=== PATIENT | male | born 1975 | race Hispanic/Latino ===

== ENCOUNTER → 2019-07-12 | Outpatient (CLI) | payer BC, MEDICARE | END | disposition home or self-care (01) | LOC: SHCH 14:40 | PROVIDERS: ATTEND Internal Medicine Cardiovascular Disease | DX: I65.23 Occlusion and stenosis of bilateral carotid arteries (principal); I20.1 Angina pectoris with documented spasm | CPT/HCPCS: 93880 ==

== ENCOUNTER → 2020-06-01 | Outpatient (CLI) | payer MEDICARE ==
[~2020-06-01] VITALS: Ht 168.9 cm; Wt 99.2 kg
[~2020-06-01] MED LIST: AEC81 PO; ATOR-2 PO; CALC667T8 PO; CARV6.25 PO; CEFAZOLIN SODIUM 1 GM VIAL IVP SCH; CLON0.2T PO; CLOP75TA32 PO; ERY500 PO; EVOL140S2 SQ; EZET10TA48 PO; FOLI0.8T22 PO; INSREG SQ; INSU100V37 SQ; ISOS20TA7 PO; LINA290C PO; METO5TAB2 PO; OMEP40CA13 PO; ONDA4TAB4 PO; SACU1TAB PO
[2020-06-01 10:40] LABS: BASOPHILS % (AUTO) 0.4 % (0.0-5.0); HEMATOCRIT 35.2 % (42-54); LYMPHOCYTES % (AUTO) 11.2 % (21.0-51.0); MEAN CORPUSCULAR HGB CONC 34.1 g/dL (32.0-36.0); MEAN CORPUSCULAR VOLUME 99.7 fL (79-99); MONOCYTES % (AUTO) 5.7 % (3.0-13.0); NEUTROPHILS % (AUTO) 82.4 % (40.0-77.0); PLATELET COUNT (AUTO) 188 K/uL (130-400); RED BLOOD CELL COUNT(AUTO) 3.53 MIL/uL (4.50-6.20); WHITE BLOOD COUNT (AUTO) 9.9 K/uL (4.8-10.8)
[2020-06-01 10:49] LABS: POTASSIUM 4.3 mmol/L (3.5-5.1)
[2020-06-01 10:59] LABS: CREATININE 9.5 mg/dL (0.5-1.5)
--- NOTE | 2020-06-01 16:12 | NUR ---
ENDY ESQUEDA NOTIFIED OF ABNORMAL LABS- NO NEW ORDERS RECEIVED
--- NOTE | 2020-06-02 16:19 | NUR ---
Rep Spoke to Silvio from [employer] and make him aware of procedure for Friday06/06/2020
[2020-06-02 16:22] VITALS: BP 140/80
== END ==
LOC: EDSTATUS 09:00 → DAH 10:00
PROVIDERS: ATTEND Internal Medicine Cardiovascular Disease
DX: Z01.818 Encounter for other preprocedural examination (principal); I50.22 Chronic systolic (congestive) heart failure
CPT/HCPCS: 36415; 80048; 85025; 93005

== ENCOUNTER → 2020-12-11 | Outpatient (CLI) | payer MEDICARE ==
[~2020-12-11] MED LIST changes: -CEFAZOLIN SODIUM 1 GM VIAL IVP SCH; -ISOS20TA7 PO; +ISOS20TA85 PO
== END | disposition home or self-care (01) ==
LOC: SHCH 14:23
PROVIDERS: ATTEND Internal Medicine Cardiovascular Disease
DX: I25.5 Ischemic cardiomyopathy (principal)
CPT/HCPCS: 93306; 93356

== ENCOUNTER 2021-09-04 15:29 | Inpatient (IN) | payer MEDICARE ==
[~2021-09-04] VITALS: Ht 165.1 cm; Wt 99.9 kg
[~2021-09-04 15:29] MED LIST changes: -OMEP40CA13 PO; +OMEP40CA21 PO
[2021-09-04 16:52] LABS: BASOPHILS % (AUTO) 0.4 % (0.0-5.0); EOSINOPHILS % (AUTO) 0.1 % (0.0-8.0); HEMATOCRIT 36.5 % (42-54); LYMPHOCYTES % (AUTO) 9.1 % (21.0-51.0); MEAN CORPUSCULAR HEMOGLOBIN 32.3 pg (27.0-33.0); MEAN CORPUSCULAR HGB CONC 32.1 g/dL (32.0-36.0); MEAN CORPUSCULAR VOLUME 100.8 fL (79-99); MONOCYTES % (AUTO) 5.4 % (3.0-13.0); NEUTROPHILS % (AUTO) 84.7 % (40.0-77.0); PLATELET COUNT (AUTO) 132 K/uL (130-400); RED BLOOD CELL COUNT(AUTO) 3.62 MIL/uL (4.50-6.20); RED CELL DISTRIBUTION WIDTH 13.2 % (11.0-15.5); WHITE BLOOD COUNT (AUTO) 9.3 K/uL (4.8-10.8)
[2021-09-04 17:15] LABS: ALBUMIN 3.7 g/dL (3.5-5.0); BILIRUBIN,TOTAL 0.5 mg/dL (0.2-1.0); POTASSIUM 5.5 mmol/L (3.5-5.1); TOTAL PROTEIN, SERUM 7.4 g/dL (6.0-8.3)
[2021-09-04 17:20] LABS: CREATININE 10.3 mg/dL (0.5-1.5)
[2021-09-04] MEDS ORDERED: ONDANSETRON 4MG INJ IVP ONE (18:30)
[2021-09-04 19:07] LABS: PROTHROMBIN TIME 10.9 SEC (9.6-11.6)
[2021-09-04 19:09] LABS: PARTIAL THROMBOPLASTIN TIME 29.4 SEC (26.3-35.5)
[2021-09-04] MEDS ORDERED: MORPHINE 4 MG SYG ONE (19:43)
[2021-09-04] MEDS ORDERED: ONDANSETRON 4MG INJ ONE (19:43)
[2021-09-04] MEDS ORDERED: MORPHINE 4 MG SYG IM ONE (20:00)
[2021-09-04] MEDS: INSULIN HUMULIN R 100 UNIT/ML 3ML SQ SCH (21:00)
[2021-09-04] MEDS ORDERED: FAMOTIDINE 20MG VIAL IV SCH (21:00)
[2021-09-04] MEDS ORDERED: ACETAMINOPHEN 325 MG TAB PO PRN (21:00)
[2021-09-04] MEDS ORDERED: HYDROMORPHONE 1 MG INJ ONE (23:57)
[2021-09-05] VITALS (15 sets, daily range): BP systolic 101–143; BP diastolic 51–80
[2021-09-05] MEDS: HYDROMORPHONE 0.5 MG SYG (0.5MG/0.5ML) IVP PRN ×3 (00:01→10:56)
[2021-09-05] MEDS: ONDANSETRON 4MG INJ IVP PRN ×2 (05:33→15:13)
[2021-09-05 05:48] LABS: BASOPHILS % (AUTO) 0.7 % (0.0-5.0); EOSINOPHILS % (AUTO) 0.2 % (0.0-8.0); HEMATOCRIT 33.2 % (42-54); LYMPHOCYTES % (AUTO) 12.3 % (21.0-51.0); MEAN CORPUSCULAR HEMOGLOBIN 32.5 pg (27.0-33.0); MEAN CORPUSCULAR HGB CONC 31.9 g/dL (32.0-36.0); MEAN CORPUSCULAR VOLUME 101.8 fL (79-99); MONOCYTES % (AUTO) 7.9 % (3.0-13.0); NEUTROPHILS % (AUTO) 78.6 % (40.0-77.0); PLATELET COUNT (AUTO) 132 K/uL (130-400); RED BLOOD CELL COUNT(AUTO) 3.26 MIL/uL (4.50-6.20); RED CELL DISTRIBUTION WIDTH 13.4 % (11.0-15.5); WHITE BLOOD COUNT (AUTO) 8.6 K/uL (4.8-10.8)
[2021-09-05 06:06] LABS: POTASSIUM 5.8 mmol/L (3.5-5.1)
[2021-09-05 06:15] LABS: INR 0.98 (0.85-1.15); PROTHROMBIN TIME 10.7 SEC (9.6-11.6)
[2021-09-05 06:16] LABS: PARTIAL THROMBOPLASTIN TIME 29.3 SEC (26.3-35.5)
[2021-09-05 06:25] LABS: CREATININE 11.1 mg/dL (0.5-1.5)
[2021-09-05] MEDS: INSULIN HUMULIN R 100 UNIT/ML 3ML SQ SCH ×4 (07:30→21:00)
[2021-09-05] MEDS ORDERED: HYDROMORPHONE 1 MG INJ ONE ×2 (07:53→23:11)
[2021-09-05] MEDS: PANTOPRAZOLE 40 MG/VIAL IVP SCH (08:08)
[2021-09-05] MEDS ORDERED: DEXTROSE 50%-WATER 50 ML DISP.SYRIN IV ONE ×2 (09:44→12:40)
[2021-09-05] MEDS ORDERED: LIDOCAINE HCL 1% 20 ML VIAL ONE (13:20)
[2021-09-05] MEDS ORDERED: HEPARIN 1,000 UNIT VIAL ONE (13:20)
[2021-09-05] MEDS ORDERED: FENTANYL CITRATE PF 50 MCG/1 ML 2ML VIAL ONE (13:34)
[2021-09-05] MEDS: ASPIRIN 81MG CHEW TAB PO SCH (16:04)
[2021-09-05] MEDS: ISOSORBIDE MONO 30MG SR TAB PO SCH (16:04)
[2021-09-05] MEDS ORDERED: CLOP75TA32 PO (16:18)
[2021-09-05] MEDS ORDERED: ASPI-1443 PO (16:18)
[2021-09-05] MEDS ORDERED: ONDA-105 PO (16:18)
[2021-09-05] MEDS ORDERED: TYL3B PO (16:18)
[2021-09-05] MEDS ORDERED: DICY10CA13 PO (16:18)
[2021-09-05] MEDS ORDERED: CALC667C10 PO (16:27)
[2021-09-05] MEDS ORDERED: SACU1TAB PO (16:27)
[2021-09-05] MEDS ORDERED: ATOR-2 PO (16:27)
[2021-09-05] MEDS ORDERED: ERYT-131 PO (16:27)
[2021-09-05] MEDS ORDERED: CLON0.2T PO (16:27)
[2021-09-05] MEDS ORDERED: CARV12.511 PO (16:27)
[2021-09-05] MEDS ORDERED: PANT40TA54 PO (16:27)
[2021-09-05] MEDS ORDERED: ISOS60TA77 PO (16:27)
[2021-09-05] MEDS ORDERED: LINA290C PO (16:27)
[2021-09-05] MEDS ORDERED: INSREG SQ (16:39)
[2021-09-05] MEDS ORDERED: INSU300I3 SQ (16:39)
[2021-09-05 17:21] LABS: HEMATOCRIT 33.8 % (42-54)
[2021-09-05 17:37] LABS: HEMOGLOBIN A1C 7.7 % (4.0-6.0)
[2021-09-05 17:38] LABS: CREATININE 12.3 mg/dL (0.5-1.5)
[2021-09-05 18:13] LABS: % IRON SATURATION 28.9 % (30-44)
[2021-09-05] MEDS ORDERED: SACUBITRIL/VALSARTAN 1 EACH TABLET PO SCH (21:00)
[2021-09-05] MEDS: CARVEDILOL 12.5 MG TABLET PO SCH (21:00)
[2021-09-05] MEDS ORDERED: HEPARIN 5,000 UNIT VIAL ONE (22:24)
[2021-09-05] MEDS ORDERED: HEPARIN 5,000 UNIT VIAL IV SCH (22:30)
[2021-09-05] MEDS: ATORVASTATIN 40 MG TABLET PO SCH (23:14)
[2021-09-06] VITALS (7 sets, daily range): BP systolic 90–112; BP diastolic 45–64
[2021-09-06] MEDS: ONDANSETRON 4MG INJ IVP PRN (00:04)
[2021-09-06 01:08] LABS: HEPATITIS B SURFACE ANTIGEN Non-Reactive (Negative)
[2021-09-06] MEDS: INSULIN HUMULIN R 100 UNIT/ML 3ML SQ SCH ×4 (06:11→21:15)
[2021-09-06] MEDS ORDERED: CLOPIDOGREL 75MG TAB PO SCH (09:00)
[2021-09-06] MEDS ORDERED: CARVEDILOL 25 MG TABLET PO SCH (09:00)
[2021-09-06] MEDS: ASPIRIN 81MG CHEW TAB PO SCH (09:28)
[2021-09-06] MEDS: ISOSORBIDE MONO 30MG SR TAB PO SCH (09:28)
[2021-09-06] MEDS: PANTOPRAZOLE 40 MG/VIAL IVP SCH (09:28)
[2021-09-06] MEDS: SACUBITRIL/VALSARTAN 1 EACH TABLET PO SCH ×2 (09:28→21:00)
[2021-09-06] MEDS ORDERED: 0.9% NACL 500ML IV.SOLN IV SCH (19:30)
[2021-09-06] MEDS: CARVEDILOL 12.5 MG TABLET PO SCH (21:00)
[2021-09-06] MEDS: ATORVASTATIN 40 MG TABLET PO SCH (21:09)
[2021-09-07] MEDS ORDERED: REGADENOSON 0.4 MG/5 ML PF SYG IVP SCH (03:25)
== END 2021-09-07 03:25 | disposition left against medical advice (07) | DRG 314 ==
LOC: EDH 15:29 → EDHIP 19:57 → 3BH 09-05 16:26
PROVIDERS: ADMIT Internal Medicine Nephrology; ATTEND Internal Medicine Nephrology
PROC: 0JH63XZ Insertion of Tunneled Vascular Access Device into Chest Subcutaneous Tissue and Fascia, Percutaneous Approach (ICD-10-PCS; principal; 2021-09-05)
PROC: 02H633Z Insertion of Infusion Device into Right Atrium, Percutaneous Approach (ICD-10-PCS; 2021-09-05)
PROC: B5181ZA Fluoroscopy of Superior Vena Cava using Low Osmolar Contrast, Guidance (ICD-10-PCS; 2021-09-05)
PROC: B548ZZA Ultrasonography of Superior Vena Cava, Guidance (ICD-10-PCS; 2021-09-05)
PROC: 5A1D70Z Performance of Urinary Filtration, Intermittent, Less than 6 Hours Per Day (ICD-10-PCS; 2021-09-05)
DX: T82.868A Thrombosis due to vascular prosthetic devices, implants and grafts, initial encounter (principal); N18.6 End stage renal disease; I13.2 Hypertensive heart and chronic kidney disease with heart failure and with stage 5 chronic kidney disease, or end stage renal disease; E87.1 Hypo-osmolality and hyponatremia; I25.119 Atherosclerotic heart disease of native coronary artery with unspecified angina pectoris; K31.84 Gastroparesis; E11.43 Type 2 diabetes mellitus with diabetic autonomic (poly)neuropathy; E11.22 Type 2 diabetes mellitus with diabetic chronic kidney disease; E87.5 Hyperkalemia; Z20.822 Contact with and (suspected) exposure to COVID-19; Y83.2 Surgical operation with anastomosis, bypass or graft as the cause of abnormal reaction of the patient, or of later complication, without mention of misadventure at the time of the procedure; I50.9 Heart failure, unspecified; E78.01 Familial hypercholesterolemia; I25.5 Ischemic cardiomyopathy; D64.9 Anemia, unspecified; E66.9 Obesity, unspecified; E78.5 Hyperlipidemia, unspecified; Z53.9 Procedure and treatment not carried out, unspecified reason; E11.51 Type 2 diabetes mellitus with diabetic peripheral angiopathy without gangrene; Z68.36 Body mass index [BMI] 36.0-36.9, adult; Z95.5 Presence of coronary angioplasty implant and graft; Z99.2 Dependence on renal dialysis; Z95.810 Presence of automatic (implantable) cardiac defibrillator; Y92.89 Other specified places as the place of occurrence of the external cause; Z82.49 Family history of ischemic heart disease and other diseases of the circulatory system
CPT/HCPCS: 36415; 36558; 71045; 77001; 80048; 80053; 80061; 82040; 82550; 82565; 82728; 82948; 83036; 83540; 83550; 83874; 84100; 84484; 84520; 85014; 85018; 85025; 85610; 85730; 86701; 86704; 86706; 87340; 87390; 87635; 90935; 93005; C1750; C9113; G0378; J1170; J1644; J1815; J2270; J2405; J2785; J3010; J3490; J7040; J7070

== ENCOUNTER → 2022-08-09 | Outpatient (CLI) | payer MEDICARE ==
[~2022-08-09] MED LIST changes: -AEC81 PO; +ASPI-1443 PO; +CALC667C10 PO; -CALC667T8 PO; +CARV12.511 PO; -CARV6.25 PO; +DICY10CA13 PO; -ERY500 PO; +ERYT-131 PO; -EVOL140S2 SQ; -EZET10TA48 PO; -FOLI0.8T22 PO; -INSU100V37 SQ; +INSU300I3 SQ; -ISOS20TA85 PO; +ISOS60TA77 PO; -METO5TAB2 PO; -OMEP40CA21 PO; +ONDA-105 PO; -ONDA4TAB4 PO; +PANT40TA54 PO; +TYL3B PO
== END | disposition home or self-care (01) ==
LOC: SHCH 13:03
PROVIDERS: ATTEND Internal Medicine Cardiovascular Disease
DX: I08.2 Rheumatic disorders of both aortic and tricuspid valves (principal); I25.10 Atherosclerotic heart disease of native coronary artery without angina pectoris; R29.898 Other symptoms and signs involving the musculoskeletal system; I50.30 Unspecified diastolic (congestive) heart failure
CPT/HCPCS: 93306